=== PATIENT | male | born 1965 | race Caucasian/White ===

== ENCOUNTER 2016-07-25 08:13 | Day surgery (SDC) | payer OTHER ==
[2016-07-24 12:25] VITALS: BMI 26.6
[2016-07-25 09:33] VITALS: TEMP 97.5
[2016-07-25] MEDS ORDERED: LIDOCAINE HCL/PF 1% SDV 5ML VIAL ONE (10:14)
[2016-07-25] MEDS ORDERED: PROPOFOL 20 ML ONE ×2 (10:14)
[2016-07-25 14:15] VITALS: BP 112/66; PULSE 55
--- NOTE | 2016-07-28 13:40 | PATH ---
Surgical Pathology Report Patient Name: OTONIEL GARCIA [facility]. Rec. #: [id number] /Age/Gender: 1965 (Age: 50) / M Account: [id number] Location: [facility]OS[facility] Taken: 07/25/2016 Received: 07/25/2016 Reported: 07/28/2016 Physicians: Mohinder Steen M.D. Specimen(s) Received A: ANTRAL BODY B: BX GE JUNCTION Clinical History GERD, intestinal metaplasia of gastric mucosa Hiatal hernia, erosion GE junction, esophagitis, antrum and body metaplasia Final Diagnosis A. STOMACH, ANTRUM, BODY, BIOPSY: GASTRIC ANTRAL AND OXYNTIC MUCOSA WITH MODERATE CHRONIC GASTRITIS WITH INTESTINAL METAPLASIA. NEGATIVE FOR DYSPLASIA. IMMUNOSTAIN FOR H. PYLORI IS NEGATIVE FOR ORGANISMS. B. GE JUNCTION, BIOPSY: SQUAMOUS AND COLUMNAR GASTRIC TYPE MUCOSA WITH REFLUX TYPE CHANGES AND CHRONIC INFLAMMATION WITH MARKED INCREASE IN EOSINOPHILS (SEE COMMENT). NO INTESTINAL METAPLASIA (GARY'S ESOPHAGUS) IDENTIFIED. Comment: There is marked increase in intraepithelial eosinophils. The eosinophil count is focally ~15-20/HPF. While eosinophils in the squamous epithelium are often seen in GERD; this degree of eosinophilia exceeds the numbers usually seen in GERD and is highly suggestive of eosinophilic esophagitis in proper clinical and endoscopic settings. Clinical and endoscopic correlation and follow up are suggested. Electronically Signed Tim Neumann M.D. Gross Description A. Received in formalin, labeled "antral body" are 5 drake, irregular portions of soft tissue ranging from 0.1-0.3 cm in greatest dimension. The specimens are submitted in toto in one cassette. B. Received in formalin, labeled "GE junction" are 2 drake, irregular portions of soft tissue measuring 0.1 and 0.3 cm in greatest dimension. The specimens are submitted in toto in one cassette. /07/25/201607/25/2016
== END 2016-07-25 10:05 | disposition home or self-care (01) ==
LOC: JASU-ENDO 08:13
PROVIDERS: ATTEND Internal Medicine Gastroenterology
PROC: 0DB68ZX Excision of Stomach, Via Natural or Artificial Opening Endoscopic, Diagnostic (ICD-10-PCS; 2016-07-25)
PROC: 0DB48ZX Excision of Esophagogastric Junction, Via Natural or Artificial Opening Endoscopic, Diagnostic (ICD-10-PCS; principal; 2016-07-25 09:00)
DX: K31.9 Disease of stomach and duodenum, unspecified (principal); K44.9 Diaphragmatic hernia without obstruction or gangrene
CPT/HCPCS: 88305-TC; 88342-TC